=== PATIENT | female | born 1995 | race African-American/Black ===

== ENCOUNTER 2018-11-27 08:32 | Emergency (ER) | payer OTHER ==
[~2018-11-27] VITALS: Ht 170.2 cm; Wt 63.5 kg
[2018-11-27] MEDS ORDERED: IPRAT-ALBUT 0.5-3 ML IH (16:08)
[2018-11-27] MEDS ORDERED: MUCINEX DM ER1 EAC1 PO (16:08)
[2018-11-27] MEDS ORDERED: OSEL75CA PO (16:08)
[2018-11-27] MEDS ORDERED: BUDESONIDE0.5 MG/2 M IH (16:08)
[2018-11-27] MEDS ORDERED: ZITHROMAX500 MG PO (16:08)
[2018-11-27] MEDS ORDERED: PROMETH-CODEIN 65 ML PO (16:08)
== END 2018-11-27 20:00 | disposition home or self-care (01) ==
LOC: ER 08:32
DX: J11.1 Influenza due to unidentified influenza virus with other respiratory manifestations (principal); B96.0 Mycoplasma pneumoniae [M. pneumoniae] as the cause of diseases classified elsewhere